=== PATIENT | male | born 1970 | race Caucasian/White ===

== ENCOUNTER 2019-07-23 10:33 | Day surgery (SDC) | payer BC ==
[2019-07-23] MEDS ORDERED: LIDOCAINE 1% 20 ML VIAL (10MG/ML) FOR IV START INTRADERMA PRN (11:08)
[2019-07-23 11:10] VITALS: TEMP 97.8
[2019-07-23] MEDS: LACTATED RINGERS 1,000 ML IV SCH ×2 (11:25→11:27)
[2019-07-23] MEDS ORDERED: LIDOCAINE 1% INJ 10MG/ML (20 ML MDV) ONE (11:30)
[2019-07-23] MEDS ORDERED: PROPOFOL 10 MG/ML 20 ML VIAL IV ONE (11:30)
--- NOTE | 2019-07-23 11:35 | P.GSHP ---
History of Present Illness H&P Date: 07/23/19 Chief Complaint: GERD, presurgical Patient here today for upper endoscopy. Patient with complaints of mild reflux. Patient has been worked up for upcoming sleeve gastrectomy. Past Medical History Past Medical History: Asthma, Cancer Additional Past Medical History / Comment(s): EXERCISE INDUCED ASTHMA-HAS RESCUE INHALERNECK, SKIN CANCER-MULTIPLE TIMES ON ARMS, FACE, BACK OF NECK. [facility] History of Any Multi-Drug Resistant Organisms: None Reported Past Surgical History: Cholecystectomy, Orthopedic Surgery Additional Past Surgical History / Comment(s): ARTHROSCOPY RT AND LEFT KNEES, SCOPE ON RT SHOULDER, SCALP SURGERY, STRESS TEST ON TREADMILL Past Anesthesia/Blood Transfusion Reactions: No Reported Reaction Past Psychological History: No Psychological Hx Reported Smoking Status: Never smoker Past Alcohol Use History: Occasional Past Drug Use History: None Reported Medications and Allergies Home Medications Medication Instructions Recorded Confirmed Type Fluticasone Nasal [place] [Flonase 1 spray INTRANASAL DAILY 07/23/19 07/23/19 History Nasal [place]] Allergies Allergy/AdvReac Type Severity Reaction Status Date / Time cefazolin [From Kefzol] Allergy Rash/Hives Verified 07/23/19 11:04 erythromycin base Allergy Vomiting Verified 07/23/19 11:05 Surgical - Exam Vital Signs Temp Pulse Resp BP Pulse Ox 97.8 F 71 18 163/104 95 07/23/19 11:08 07/23/19 11:08 07/23/19 11:08 07/23/19 11:08 07/23/19 11:08 Physical exam: General: Well-developed, well-nourished HEENT: Normocephalic, sclerae nonicteric Abdomen: Nontender, nondistended Extremities: No edema Neuro: Alert and oriented Assessment and Plan (1) GERD (gastroesophageal reflux disease) Narrative/Plan: Will proceed with upper endoscopy at this time. Current Visit: Yes Status: Acute Code(s): K21.9 - GASTRO-ESOPHAGEAL REFLUX DISEASE WITHOUT ESOPHAGITIS SNOMED Code(s): 791137052
--- NOTE | 2019-07-23 11:42 | P.PCN ---
Date of Procedure: 07/23/19 Procedure(s) Performed: Preoperative Dx: GERD, presurgical Postoperative Dx: Mild gastritis Procedure: EGD with Bx Anesthesia: Sedation Endoscopist: Dr. Cates Specimens: Antrum Endoscopic Procedure: The patient was on the endoscopy table in the left decubitus position. The Olympus gastroscope was inserted into the oropharynx and passed under direct visualization to the region of the third portion of the duodenum. From that point the scope was slowly withdrawn inspecting all surfaces carefully. There were no neoplastic inflammatory or polypoid lesions throughout the duodenum. The pylorus was widely patent. The stomach was carefully inspected. There was gastritis present. A biopsy of the antrum took place to rule out H. pylori. Retroflexion revealed a normal hiatus. The esophagus was then carefully examined. There were no neoplastic inflammatory or polypoid lesions throughout the visualized esophagus. The patient was then taken to the recovery room in stable condition per anesthesia guidelines. Recommendations: Continue preoperative workup for upcoming sleeve gastrectomy. Follow-up next few weeks.
[2019-07-23 11:50] VITALS: RESP 16
[2019-07-23 12:06] VITALS: BP 126/70; PULSE 71
== END 2019-07-23 12:35 | disposition home or self-care (01) ==
LOC: ORWHC2ENDO 10:33
PROVIDERS: ATTEND Surgery
DX: K29.50 Unspecified chronic gastritis without bleeding (principal); K21.9 Gastro-esophageal reflux disease without esophagitis; J45.909 Unspecified asthma, uncomplicated; E66.01 Morbid (severe) obesity due to excess calories; Z68.41 Body mass index [BMI] 40.0-44.9, adult; Z88.1 Allergy status to other antibiotic agents; Z98.890 Other specified postprocedural states; Z85.828 Personal history of other malignant neoplasm of skin; Z90.49 Acquired absence of other specified parts of digestive tract; Z79.899 Other long term (current) drug therapy
CPT/HCPCS: 88305; 43239; J2001; J2704

== ENCOUNTER → 2019-07-26 | Outpatient (CLI) | payer BC ==
[2019-07-26 13:44] VITALS: BMI 40.6
== END | disposition home or self-care (01) ==
LOC: BARWHC3 08:46
PROVIDERS: ATTEND Surgery
DX: E66.01 Morbid (severe) obesity due to excess calories (principal); Z68.41 Body mass index [BMI] 40.0-44.9, adult
CPT/HCPCS: 97804

== ENCOUNTER → 2019-09-07 | Outpatient (CLI) | payer BC ==
[2019-09-07 14:24] VITALS: BP 133/76; PULSE 76; TEMP 98.1; BMI 41.3
--- NOTE | 2019-09-07 16:47 | P.BASOAP ---
Subjective Progress Note Date: 09/07/19 Principal diagnosis: Morbid obesity Patient returns after recent EGD. Endoscopic findings showing mild gastritis. H. pylori negative. He is still interested in pursuing sleeve gastrectomy. Objective - Vital Signs Vital signs: Vital Signs Temp 98.1 F 09/07/19 14:20 Pulse 76 09/07/19 14:20 Resp BP 133/76 09/07/19 14:20 Pulse Ox Intake & Output 09/06/19 09/07/19 09/07/19 18:59 06:59 18:59 Weight 130.635 kg - Exam Abdomen: Soft, nontender, nondistended Assessment/Plan (1) Morbid obesity Narrative/Plan: 49-year-old male with morbid obesity. We'll proceed with sleeve gastrectomy. Surgical consent form and associated risks/comment locations reviewed in detail. Potential of utilizing the da Cristina robot platform also reviewed. For now we'll tentatively schedule for traditional laparoscopic approach however if availability of Xi robot at the time of scheduling will consider recontacting patient by phone to switch to da Cristina assistance. Tentatively plan mid-to-late October. Plan: Date: 09/07/19 Initial Weight: Initial BMI: Current Weight: 130.635 kg Current BMI: 41.3 Type of Surgery: Vertical Sleeve Gastrectomy Total Volume in Band: Previous Volume: Volume Removed: Volume Added: Band Size:
== END | disposition home or self-care (01) ==
LOC: BARWHC3 13:19
PROVIDERS: ATTEND Surgery
DX: E66.01 Morbid (severe) obesity due to excess calories (principal); Z68.41 Body mass index [BMI] 40.0-44.9, adult; K29.70 Gastritis, unspecified, without bleeding
CPT/HCPCS: 99211

== ENCOUNTER → 2019-10-04 | Outpatient (CLI) | payer BC ==
[2019-10-04 16:44] LABS: Basophils # (A) 0.1 k/uL (0-0.2); Basophils % (A) 1 %; Eosinophils # (A) 0.1 k/uL (0-0.7); Eosinophils % (A) 1 %; HCT 45.1 % (39.0-53.0); HGB 14.8 gm/dL (13.0-17.5); Lymphocytes # (A) 1.9 k/uL (1.0-4.8); Lymphocytes % (A) 20 %; MCH 29.6 pg (25.0-35.0); MCHC 32.9 g/dL (31.0-37.0); MCV 89.8 fL (80.0-100.0); Mean Platelet Volume 8.2; Monocytes # (A) 0.6 k/uL (0-1.0); Monocytes % (A) 7 %; Neutrophils # (A) 6.3 k/uL (1.3-7.7); Neutrophils % (A) 69 %; Platelet Count 228 k/uL (150-450); RBC 5.02 m/uL (4.30-5.90); RDW 12.3 % (11.5-15.5); WBC 9.1 k/uL (3.8-10.6)
[2019-10-04 16:50] LABS: ALT 25 U/L (4-49); AST 35 U/L (17-59); African American GFR (CKD) >90 (>60 ml/min/1.73 sqM); Albumin 4.5 g/dL (3.5-5.0); Alkaline Phosphatase 57 U/L (38-126); Anion Gap 10 mmol/L; Blood Urea Nitrogen 24 mg/dL (9-20); Calcium 9.4 mg/dL (8.4-10.2); Carbon Dioxide 26 mmol/L (22-30); Chloride 103 mmol/L (98-107); Glucose 89 mg/dL (74-99); Non-African American GFR(CKD) 78 (>60 ml/min/1.73 sqM); Potassium 4.1 mmol/L (3.5-5.1); Sodium 139 mmol/L (137-145); Total Bilirubin 0.8 mg/dL (0.2-1.3); Total Protein 7.6 g/dL (6.3-8.2)
== END | disposition home or self-care (01) ==
LOC: LABPAT 16:05
PROVIDERS: ATTEND Surgery
DX: Z01.812 Encounter for preprocedural laboratory examination (principal)
CPT/HCPCS: 80053; 85025

== ENCOUNTER 2019-11-15 07:30 | Inpatient (IN) | payer BC ==
[~2019-11-15 07:30] MED LIST: CLINDAMYCIN 900 MG in DEXTROSE 5% IN WATER 50 ML IVPB ONE; DEXAMETHASONE SOD PHOSPHATE 10 MG/ML 1 ML VIAL IV ONE; ENOXAPARIN 40 MG/0.4 ML SYRINGE SQ ONE; GENTAMICIN 480 MG in SODIUM CHLORIDE 0.9% 100 ML IVPB ONE; LIDOCAINE 1% (10MG/ML) FOR IV START INTRADERMA PRN; MIDAZOLAM 2 MG/2 ML VIAL IV PRN; fentaNYL (PF) 50 MCG/ML 2 ML AMP IVP PRN
[2019-11-15] MEDS ORDERED: ONDANSETRON 4 MG/2 ML VIAL IVP ONE (08:45)
[2019-11-15] MEDS ORDERED: LACTATED RINGERS 1,000 ML IV ONE (08:45)
--- NOTE | 2019-11-15 10:09 | P.GSHP ---
History of Present Illness H&P Date: 11/15/19 Chief Complaint: Morbid obesity 49-year-old male known to our service. Patient here today for elective sleeve gastrectomy. Patient initially started seeing us at [facility] for his weight loss surgery. His care is been transferred to this hospital. Patient suffers from asthma chronic back pain chronic joint pain osteoarthritis fatty liver and mild reflux. Denies history of DVT or dysphagia. BMI when evaluated outpatient was 43.5. Heaviest weight 316. had sleeve gastrectomy with good results. He is not interested in gastric bypass. Recent endoscopy showed mild gastritis. H. pylori negative. No tobacco use. Past Medical History Past Medical History: Asthma, Cancer, Pneumonia, Sleep Apnea/CPAP/BIPAP Additional Past Medical History / Comment(s): EXERCISE INDUCED ASTHMA, SKIN CANCER-MULTIPLE TIMES ON ARMS, FACE, BACK OF NECK. History of Any Multi-Drug Resistant Organisms: None Reported Past Surgical History: Cholecystectomy, Orthopedic Surgery Additional Past Surgical History / Comment(s): ARTHROSCOPY RT AND LEFT KNEES, arthroscopy rt shoudlder, removal of skin cancer from neck and shoulder Past Anesthesia/Blood Transfusion Reactions: No Reported Reaction Smoking Status: Never smoker - Past Family History Father Family Medical History: Cancer Mother Family Medical History: Deep Vein Thrombosis (DVT) Medications and Allergies Home Medications Medication Instructions Recorded Confirmed Type Fluticasone Nasal [place] [Flonase 1 spray NASAL DAILY 07/23/19 11/12/19 History Nasal [place]] Allergies Allergy/AdvReac Type Severity Reaction Status Date / Time cefazolin [From Kefzol] Allergy Rash/Hives Verified 11/12/19 08:19 erythromycin base Allergy Vomiting Verified 11/12/19 08:19 Surgical - Exam Vital Signs Temp Pulse Resp BP Pulse Ox 97.5 F L 69 18 131/91 96 11/15/19 08:31 11/15/19 08:31 11/15/19 08:31 11/15/19 08:31 11/15/19 08:31 Physical exam: General: Well-developed, well-nourished HEENT: Normocephalic, sclerae nonicteric Abdomen: Nontender, nondistended Extremities: No edema Neuro: Alert and oriented Assessment and Plan (1) Morbid obesity Narrative/Plan: 49-year-old male with morbid obesity. Underlying comorbidities as per HPI. Remains interested in sleeve gastrectomy. We'll proceed with laparoscopic sleeve gastrectomy, possible open today. The risks of bleeding, infection, stenosis, stricture, leak, abscess, fistula formation, peritonitis, poor weight loss, reflux, vomiting, conversion to an open procedure, aborting sleeve gastrectomy, MO, PE, DVT, and were discussed. The patient understands and wishes to proceed. Current Visit: No Status: Acute Code(s): E66.01 - MORBID (SEVERE) OBESITY DUE TO EXCESS CALORIES SNOMED Code(s): 922827437
[2019-11-15] MEDS ORDERED: LIDOCAINE 1% INJ 10MG/ML (20 ML MDV) ONE (11:28)
[2019-11-15] MEDS ORDERED: fentaNYL (PF) 50 MCG/ML 2 ML AMP ONE (11:28)
[2019-11-15] MEDS ORDERED: ROCURONIUM BROMIDE 10 MG/ML 5 ML VIAL IV ONE (11:28)
[2019-11-15] MEDS ORDERED: PROPOFOL 10 MG/ML 20 ML VIAL IV ONE (11:28)
[2019-11-15] MEDS ORDERED: MIDAZOLAM 2 MG/2 ML VIAL ONE (11:28)
[2019-11-15] MEDS ORDERED: SUCCINYLCHOLINE CHLORIDE VIAL 200 MG/10 ML VIAL IV ONE (11:28)
[2019-11-15] MEDS ORDERED: GLYCOPYRROLATE 0.2 MG/ML 2 ML VIAL ONE (11:28)
[2019-11-15] MEDS ORDERED: PHENYLEPHRINE-0.9% NACL SYG 1 MG/10 ML SYRINGE ONE (11:28)
[2019-11-15] MEDS ORDERED: NEOSTIGMINE 1 MG/ML 10 ML VIAL ONE (11:28)
[2019-11-15] MEDS: LACTATED RINGERS 1,000 ML IV SCH (12:15)
[2019-11-15] MEDS ORDERED: BUPIVACAINE (PF) 0.25% 30 ML VIAL SQ ONE ×2 (12:32)
[2019-11-15] MEDS ORDERED: NALOXONE 0.4 MG/ML 1 ML VIAL IV PRN (13:42)
[2019-11-15] MEDS ORDERED: diphenhydrAMINE 50 MG/ML 1 ML VIAL IVP PRN (13:42)
--- NOTE | 2019-11-15 13:42 | P.OP ---
Date of Procedure: 11/15/19 Procedure(s) Performed: PREOPERATIVE DIAGNOSIS: Morbid obesity, chronic back pain, arthritis, asthma, GERD POSTOPERATIVE DIAGNOSIS: Same PROCEDURE: Laparoscopic sleeve gastrectomy SURGEON: Darryn EBL: Minimal ANESTHESIA: General COMPLICATIONS: None OPERATIVE PROCEDURE: Patient was placed in the operating table in the supine position. She was placed under general anesthesia at that time. The abdomen was prepped and draped in sterile fashion after the patient was placed in lithotomy. A 5 mm optical trocar was used to enter the abdominal cavity in the left upper quadrant. Insufflation took place to 15 millimeters mercury. An additional right subxiphoid 5 mm trocar was then placed under direct visu alization and then removed. 2 additional 5 mm trochars were placed in the right upper quadrant and left upper quadrant under direct visualization and a 15 mm trocar in the supraumbilical location. The liver was retracted using a medium Shira liver retractor through the right subxiphoid trocar site. The hiatus was inspected. The patient had no visible hiatal hernia At that point I moved to the mid aspect of the greater curvature the stomach. The short gastric vasculature was divided using a LigaSure device proximally. I then switched and divided the short gastrics distally to a 3-4 cm from the pylorus. The dissection took place up to the left diaphragmatic crura at that point. The posterior short gastrics were likewise divided using the LigaSure device. Once the stomach was fully mobilized the blunt tipped 40-Hungarian bougie dilator was advanced into the stomach and advanced all the way to the prepyloric location. A black echelon 60 stapler was utilized and fired tangentially across the antrum taking care to avoid narrowing at the incisura angularis. The second firing of the stapler was also a black load. Following that a total of 3 green echelon 60 staplers with seam guard took place proximally staying on the outer edge of our dilator. The oral gastric tube was reinserted. The stomach was insufflated with approximately 100 mL of methylene blue. No evidence of leak or obstruction was seen. The distal aspect of the sleeve was then reapproximated to the gastrosplenic and gastrocolic ligament using a short running 2-0 strata fix suture. This was done to prevent kinking or twisting of the sleeve. Tisseel fibrin glue was used along the length of the staple line. The stomach remnant was removed from the 15 mm trocar site without difficulty. The fascia at the 15 more site was closed using interrupted 0 Vicryl sutures with the laparoscopic suture passer and Kj Axel technique. The insufflation was evacuated. The skin at all 5 incisions were closed using 4-0 Monocryl sutures. Skin glue was then applied. DISPOSITION: Stable to recovery room
[2019-11-15] MEDS: HYDROmorphone 0.5 MG/0.5 ML SYRINGE IVP PRN ×3 (14:21→14:50)
[2019-11-15] MEDS ORDERED: SODIUM CHLORIDE 0.9% 1,000 ML IV ONE (15:21)
[2019-11-15] MEDS ORDERED: ACETAMINOPHEN IV (For NPO) 1,000 MG in EMPTY BAG 1 BAG IVPB ONE (16:00)
[2019-11-15] MEDS: ALBUTEROL NEBULIZED 2.5 MG/3 ML INHALATION SCH ×2 (16:48→19:56)
[2019-11-15] MEDS: 0.9% NACL WITH KCL 20 MEQ/L 1,000 ML IV SCH (17:03)
[2019-11-15] MEDS: HYDROmorphone 1 MG/ML 1 ML SYRINGE IVP PRN (20:31)
[2019-11-16] MEDS: 0.9% NACL WITH KCL 20 MEQ/L 1,000 ML IV SCH ×2 (00:27→07:02)
[2019-11-16] MEDS: HYDROmorphone 1 MG/ML 1 ML SYRINGE IVP PRN (01:50)
[2019-11-16] MEDS: SIMETHICONE 40 MG/0.6 ML DROPS 2,000 MG/30 ML BOTTLE PO PRN ×2 (01:50→08:00)
[2019-11-16] MEDS: HYOSCYAMINE ORAL DROPS 1.875 MG/15 ML BOTTLE PO PRN ×2 (01:51→08:00)
[2019-11-16] MEDS: ONDANSETRON 4 MG/2 ML VIAL IVP PRN ×2 (01:52→11:16)
[2019-11-16] MEDS: LACTATED RINGERS 1,000 ML IV SCH (06:18)
[2019-11-16 07:52] LABS: African American GFR (CKD) >90 (>60 ml/min/1.73 sqM); Anion Gap 9 mmol/L; Blood Urea Nitrogen 19 mg/dL (9-20); Carbon Dioxide 24 mmol/L (22-30); Chloride 105 mmol/L (98-107); Magnesium 1.8 mg/dL (1.6-2.3); Non-African American GFR(CKD) >90 (>60 ml/min/1.73 sqM); Phosphorus 3.2 mg/dL (2.5-4.5); Potassium 4.2 mmol/L (3.5-5.1); Sodium 138 mmol/L (137-145)
[2019-11-16] MEDS: ENOXAPARIN 40 MG/0.4 ML SYRINGE SQ SCH ×2 (08:00→20:11)
[2019-11-16] MEDS: PANTOPRAZOLE 40 MG/10 ML VIAL IV SCH (08:00)
[2019-11-16 08:01] LABS: Basophils % (A) 0 %; Eosinophils # (A) 0.1 k/uL (0-0.7); Eosinophils % (A) 1 %; HCT 43.5 % (39.0-53.0); HGB 14.3 gm/dL (13.0-17.5); Lymphocytes # (A) 1.1 k/uL (1.0-4.8); Lymphocytes % (A) 9 %; MCH 29.4 pg (25.0-35.0); MCHC 32.9 g/dL (31.0-37.0); MCV 89.3 fL (80.0-100.0); Mean Platelet Volume 8.3; Monocytes # (A) 0.7 k/uL (0-1.0); Monocytes % (A) 5 %; Neutrophils # (A) 10.9 k/uL (1.3-7.7); Neutrophils % (A) 85 %; Platelet Count 217 k/uL (150-450); RBC 4.87 m/uL (4.30-5.90); RDW 12.4 % (11.5-15.5); WBC 12.9 k/uL (3.8-10.6)
[2019-11-16] MEDS: ALBUTEROL NEBULIZED 2.5 MG/3 ML INHALATION SCH ×4 (08:23→20:07)
[2019-11-16] MEDS ORDERED: HYDROcodone/APAP 15 ML SOLUTION PO PRN (09:49)
--- NOTE | 2019-11-16 09:54 | FL ---
EXAMINATION TYPE: FL UGI DATE OF EXAM: 11/16/2019 LIMITED UGI: CLINICAL HISTORY: Morbid Obesity, gastric sleeve surgery yesterday . TECHNIQUE: Limited esophagram is performed utilizing 15 oz of Isovue-370. A total of 14 seconds of f luoroscopic time was utilized during procedure. 34 spot images are saved. COMPARISON: Abdominal x-ray February 08, 2013.. FINDINGS: The patient swallowed contrast without difficulty or delay. Patient has mild pain before a nd after procedure. Esophageal peristalsis and motility are satisfactory. Occasional abnormal seconda ry and tertiary contraction. There is good flow of contrast along the diaphragmatic hiatus into proxi mal stomach and subsequent flow through proximal anastomosis into gastric sleeve. There is good flow from distal sleeve and anastomosis into pylorus and duodenal sweep. Patient shows no increased sympto ms. There is no evidence of contrast extravasation to suggest leak. Cholecystectomy clips incidentall y noted. IMPRESSION: No evidence of leak or significant obstruction status post recent gastric sleeve surgery yesterday.
[2019-11-16] MEDS: 1: MVI, ADULT NO.4 WITH VIT K 10 ML, THIAMINE 100 MG, FOLIC ACID 1 MG, POTASSIUM CHLORID IV SCH ×12 (11:17→20:12)
--- NOTE | 2019-11-16 11:22 | P.PN ---
<Shirley Valerio - Last Filed: 11/16/19 11:10> Subjective Progress Note Date: 11/16/19 CHIEF COMPLAINT: Morbid obesity HISTORY OF PRESENT ILLNESS: 49-year-old male who is status post laparoscopic sleeve gastrectomy with Dr. Cates. Postop day #1. Patient examined this morning at the bedside. Patient reports gasping morning but states otherwise his pain has been tolerable. Patient was encouraged to ambulate in the hallway. Patient denies nausea or vomiting. Esophagram completed this morning negative for leak or obstruction. Vital signs stable. He is afebrile. PHYSICAL EXAM: VITAL SIGNS: Reviewed. GENERAL: Well-developed in no acute distress. HEENT: No sclera icterus. Extraocular movements grossly intact. Moist buccal mucosa. Head is atraumatic, normocephalic. ABDOMEN: Soft. Nondistended. Nontender. Surgical sites clean dry and intact. NEUROLOGIC: Alert and oriented. Cranial nerves II through XII grossly intact. ASSESSMENT: 1. Morbid obesity, status post laparoscopic sleeve gastrectomy PLAN: -Begin bariatric clear liquid diet -Pain control. Add IV Toradol. Add [place] PRN -Incentive spirometry -Increase activity as tolerated. Patient encouraged to be ambulating in the hallways today Nurse practitioner note has been reviewed by physician. Signing provider agrees with the documented findings, assessment, and plan of care. Objective - Vital Signs Vital signs: Vital Signs Temp 98.3 F 11/16/19 08:00 Pulse 77 11/16/19 08:34 Resp 16 11/16/19 08:23 BP 155/82 11/16/19 08:00 Pulse Ox 95 11/16/19 08:23 Intake & Output 11/15/19 11/16/19 11/16/19 18:59 06:59 18:59 Intake Total 8 Output Total 20 800 Balance 2097 -800 Weight 124.4 kg 124.4 kg Intake: IV 2117 Output: Urine 800 Estimated Blood Loss 20 Other: Voiding Method Toilet - Labs CBC & Chem 7: 11/16/19 07:09 11/16/19 07:09 Labs: Abnormal Lab Results - Last 24 Hours (Table) 11/16/19 Range/Units 07:09 WBC 12.9 H (3.8-10.6) k/uL Neutrophils # 10.9 H (1.3-7.7) k/uL <Shayan Cates - Last Filed: 11/16/19 15:39> Subjective Patient doing better this afternoon. He was complaining of crampy abdominal pain last night. Upper GI shows no evidence of leak or significant obstruction. Says his pain is better controlled with Toradol. Continue ambulation. Continue liquid diet. Possible discharge tomorrow. Objective - Vital Signs Vital signs: Vital Signs Temp 98.7 F 11/16/19 15:00 Pulse 79 11/16/19 15:00 Resp 18 11/16/19 15:00 BP 134/81 11/16/19 15:00 Pulse Ox 94 L 11/16/19 15:00 Intake & Output 11/15/19 11/16/19 11/16/19 18:59 06:59 18:59 Intake Total 2118 Output Total 20 800 Balance 8 -800 Weight 124.4 kg 124.4 kg 124.4 kg Intake: IV 8 Output: Urine 800 Estimated Blood Loss 20 Other: Voiding Method Toilet # Voids 3 - Labs CBC & Chem 7: 11/16/19 07:09 11/16/19 07:09 Labs: Abnormal Lab Results - Last 24 Hours (Table) 11/16/19 Range/Units 07:09 WBC 12.9 H (3.8-10.6) k/uL Neutrophils # 10.9 H (1.3-7.7) k/uL Assessment and Plan (1) Morbid obesity Current Visit: No Status: Acute Code(s): E66.01 - MORBID (SEVERE) OBESITY DUE TO EXCESS CALORIES SNOMED Code(s): 518763843
[2019-11-16 11:43] VITALS: BMI 39.3
[2019-11-16] MEDS: KETOROLAC 30 MG/ML 1 ML VIAL IVP SCH ×3 (12:11→22:20)
--- NOTE | 2019-11-16 15:13 | P.CONS ---
History of Present Illness - Reason for Consult Consult date: 11/16/19 medical management - History of Present Illness This is a 49-year-old male patient of Dr. Torres with past medical history of mild intermittent asthma, skin cancer, obstructive sleep apnea with CPAP, morbid obesity with BMI of 39. Patient has been brought in the hospital under the care of Dr. Cates status post laparoscopic sleeve gastrectomy. Patient is postop day #1. He has had no postop complications. Patient is denying any chest pain or shortness of breath. He is complaining of feeling gas bubble-type pain since yesterday after surgery with constant pressure. He is urinating okay. He has not had any diarrhea. He denies any flatulence. He is burping but not much improvement. He denies any dizziness or lightheadedness. He did have nausea after Dilaudid and is avoiding that now. He used his last night CPAP which is at his bedside. Review of Systems Constitutional: Denies anorexia, Denies chills, Denies fatigue, Denies fever, Denies lethargy, Denies malaise, Denies weakness Eyes: denies blurred vision, denies pain Ears, nose, mouth and throat: Denies dental pain, Denies headache, Denies nasal congestion, Denies nasal discharge, Denies sore throat, Denies vertigo Cardiovascular: Denies chest pain, Denies decreased exercise tolerance, Denies dyspnea on exertion, Denies edema, Denies leg edema, Denies lightheadedness, Denies shortness of breath, Denies syncope Respiratory: Reports sleep apnea, Denies cough, Denies cough with sputum, Denies dyspnea, Denies excessive sputum, Denies hemoptysis, Denies home oxygen, Denies respiratory infections, Denies wheezing Gastrointestinal: Reports abdominal pain, Reports loss of appetite, Denies diarrhea, Denies nausea, Denies vomiting Genitourinary: Denies dysuria, Denies urinary retention Musculoskeletal: Denies frequent falls, Denies gait dysfunction, Denies muscle weakness, Denies myalgias Integumentary: Denies pruritus, Denies rash Neurological: Reports change in mentation, Reports change in speech, Denies numbness, Denies weakness Psychiatric: Denies anxiety, Denies depression Endocrine: Denies fatigue, Denies weight change Past Medical History Past Medical History: Asthma, Cancer, Pneumonia, Sleep Apnea/CPAP/BIPAP Additional Past Medical History / Comment(s): EXERCISE INDUCED ASTHMA, SKIN CANCER-MULTIPLE TIMES ON ARMS, FACE, BACK OF NECK. History of Any Multi-Drug Resistant Organisms: None Reported Past Surgical History: Cholecystectomy, Orthopedic Surgery Additional Past Surgical History / Comment(s): ARTHROSCOPY RT AND LEFT KNEES, arthroscopy rt shoudlder, removal of skin cancer from neck and shoulder Past Anesthesia/Blood Transfusion Reactions: No Reported Reaction Past Psychological History: No Psychological Hx Reported Smoking Status: Never smoker Past Alcohol Use History: Rare Additional Past Alcohol Use History / Comment(s): Patient is a lifelong nonsmoker, no illicit drug use, occasional alcohol use. Past Drug Use History: None Reported - Past Family History Father Family Medical History: Cancer Additional Family Medical History / Comment(s): Father is alive at age 71 with history of skin cancer and mitral regurgitation secondary to rheumatic fever. Mother Family Medical History: Deep Vein Thrombosis (DVT) Additional Family Medical History / Comment(s): Mother is alive at age 71 with history of exocrine pancreatic insufficiency. Brother(s) Additional Family Medical History / Comment(s): Patient has 1 brother with no major medical problems. Patient does not have any sisters. Patient has 2 daughters with no major medical problems. Medications and Allergies Home Medications Medication Instructions Recorded Confirmed Type Fluticasone Nasal [place] [Flonase 1 spray NASAL DAILY 07/23/19 11/12/19 History Nasal [place]] Allergies Allergy/AdvReac Type Severity Reaction Status Date / Time cefazolin [From Kefzol] Allergy Rash/Hives Verified 11/12/19 08:19 erythromycin base Allergy Vomiting Verified 11/12/19 08:19 Physical Exam Vitals: Vital Signs Temp Pulse Pulse Pulse Pulse Resp BP 11/16/19 08:00 98.3 F 84 17 155/82 11/16/19 03:58 11/16/19 03:34 18 11/16/19 02:14 98.0 F 97 18 167/82 11/16/19 00:27 18 11/15/19 20:20 18 11/15/19 19:28 97.5 F L 115 H 18 110/65 11/15/19 17:36 106 H 130/74 11/15/19 17:20 106 H 150/75 11/15/19 17:05 104 H 144/80 11/15/19 16:58 93 11/15/19 16:52 91 18 11/15/19 16:51 94 130/71 11/15/19 16:35 97 145/81 11/15/19 16:20 93 149/80 11/15/19 16:05 96 144/79 11/15/19 16:00 69 18 11/15/19 15:50 89 145/80 11/15/19 15:35 97.6 F 80 146/80 11/15/19 15:16 81 16 125/61 11/15/19 15:00 78 16 129/60 11/15/19 14:46 76 16 146/75 11/15/19 14:30 76 16 145/74 11/15/19 14:16 83 16 128/60 11/15/19 14:01 79 16 121/57 11/15/19 13:46 89 16 131/59 11/15/19 13:30 83 16 129/60 11/15/19 13:27 97.5 F L 87 16 125/57 11/15/19 08:31 97.5 F L 69 18 131/91 Pulse Ox 11/16/19 08:00 91 L 11/16/19 03:58 96 11/16/19 03:34 11/16/19 02:14 95 11/16/19 00:27 11/15/19 20:20 11/15/19 19:28 90 L 11/15/19 17:36 11/15/19 17:20 93 L 11/15/19 17:05 94 L 11/15/19 16:58 11/15/19 16:52 11/15/19 16:51 98 11/15/19 16:35 90 L 11/15/19 16:20 91 L 11/15/19 16:05 90 L 11/15/19 16:00 11/15/19 15:50 91 L 11/15/19 15:35 92 L 11/15/19 15:16 98 11/15/19 15:00 98 11/15/19 14:46 98 11/15/19 14:30 98 11/15/19 14:16 98 11/15/19 14:01 98 11/15/19 13:46 97 11/15/19 13:30 97 11/15/19 13:27 95 11/15/19 08:31 96 Intake and Output 11/15/19 11/16/19 11/16/19 22:59 06:59 14:59 Output Total 800 Balance -800 Output: Urine 800 Other: Voiding Method Toilet Toilet Weight 124.4 kg Gen: This is a 49-year-old male. Patient is sitting up in bed and appears to be comfortable. He is complaining of abdominal discomfort. HEENT: Head is atraumatic, normocephalic. Pupils equal, round. Sclerae is anicteric. NECK: Supple. No JVD. No lymphadenopathy. No thyromegaly. LUNGS: Clear to auscultation. No wheezes or rhonchi. No intercostal retractions. HEART: Regular rate and rhythm. No murmur. ABDOMEN: Soft. Bowel sounds are present. No masses. Mild generalized tenderness. EXTREMITIES: No pedal edema. No calf tenderness. Dorsalis pedis palpable bilaterally. NEUROLOGICAL: Patient is awake, alert and oriented x3. Cranial nerves 2 through 12 are grossly intact. Results CBC & Chem 7: 11/16/19 07:09 11/16/19 07:09 Labs: Abnormal Lab Results - Last 24 Hours (Table) 11/16/19 Range/Units 07:09 WBC 12.9 H (3.8-10.6) k/uL Neutrophils # 10.9 H (1.3-7.7) k/uL Assessment and Plan Plan: 1. Morbid obesity status post lap scopic sleeve gastrectomy, postop day #1. Patient has had no postop comp occasions. IV Toradol and [place] added for pain control. Continue incentive spirometry to reduce incidence of atelectasis and hospital acquired pneumonia. Continue ambulation. 2. Mild intermittent asthma, stable without exacerbation. 3. Obstructive sleep apnea. Patient is utilizing CPAP at night. 4. History of skin cancer. 5. GI prophylaxis. Protonix. 6. DVT prophylaxis. Lovenox 40 mg subcu every 12 hours. Discharge plan: home Impression and plan of care have been directed as dictated by the signing physician. Chloé Dee nurse practitioner acting as scribe for signing physician.
[2019-11-17] MEDS: KETOROLAC 30 MG/ML 1 ML VIAL IVP SCH ×3 (05:24→17:46)
[2019-11-17] MEDS: HYOSCYAMINE ORAL DROPS 1.875 MG/15 ML BOTTLE PO PRN ×2 (05:26→17:49)
[2019-11-17] MEDS: SIMETHICONE 40 MG/0.6 ML DROPS 2,000 MG/30 ML BOTTLE PO PRN ×2 (05:26→17:48)
[2019-11-17] MEDS: LACTATED RINGERS 1,000 ML IV SCH (05:31)
[2019-11-17] MEDS: 1: MVI, ADULT NO.4 WITH VIT K 10 ML, THIAMINE 100 MG, FOLIC ACID 1 MG, POTASSIUM CHLORID IV SCH ×18 (05:31→21:33)
[2019-11-17] MEDS: ALBUTEROL NEBULIZED 2.5 MG/3 ML INHALATION SCH ×4 (07:25→21:20)
[2019-11-17 07:27] LABS: Basophils % (A) 0 %; Eosinophils # (A) 0.1 k/uL (0-0.7); Eosinophils % (A) 1 %; HCT 40.1 % (39.0-53.0); HGB 13.2 gm/dL (13.0-17.5); Lymphocytes # (A) 0.9 k/uL (1.0-4.8); Lymphocytes % (A) 10 %; MCH 29.8 pg (25.0-35.0); MCV 90.4 fL (80.0-100.0); Mean Platelet Volume 8.6; Monocytes # (A) 0.6 k/uL (0-1.0); Monocytes % (A) 6 %; Neutrophils # (A) 7.1 k/uL (1.3-7.7); Neutrophils % (A) 82 %; Platelet Count 181 k/uL (150-450); RBC 4.44 m/uL (4.30-5.90); RDW 12.4 % (11.5-15.5); WBC 8.7 k/uL (3.8-10.6)
[2019-11-17] MEDS: ENOXAPARIN 40 MG/0.4 ML SYRINGE SQ SCH ×2 (07:43→21:33)
[2019-11-17] MEDS: PANTOPRAZOLE 40 MG/10 ML VIAL IV SCH (07:43)
[2019-11-17 07:45] LABS: African American GFR (CKD) >90 (>60 ml/min/1.73 sqM); Anion Gap 7 mmol/L; Blood Urea Nitrogen 18 mg/dL (9-20); Calcium 8.7 mg/dL (8.4-10.2); Carbon Dioxide 24 mmol/L (22-30); Chloride 108 mmol/L (98-107); Glucose 105 mg/dL (74-99); Non-African American GFR(CKD) >90 (>60 ml/min/1.73 sqM); Potassium 4.4 mmol/L (3.5-5.1); Sodium 139 mmol/L (137-145)
--- NOTE | 2019-11-17 09:19 | P.PN ---
<ImanGenoShirley A - Last Filed: 11/17/19 09:15> Subjective Progress Note Date: 11/17/19 CHIEF COMPLAINT: Morbid obesity HISTORY OF PRESENT ILLNESS: 49-year-old male who is status post laparoscopic sleeve gastrectomy with Dr. Cates. Postop day #2. Patient examined this morning at the bedside. Patient is tolerating clear liquid diet. He ate some lemon ice and water this morning. He does report mild dysphagia with the jello. Denies nausea or vomiting. Pain 6/10 this morning. He is receiving IV Toradol only. He has been offered additional pain medications but has refused. Vital signs stable. He is afebrile. WBC 8.7. Hemoglobin 13.2. PHYSICAL EXAM: VITAL SIGNS: Reviewed. GENERAL: Well-developed in no acute distress. HEENT: No sclera icterus. Extraocular movements grossly intact. Moist buccal mucosa. Head is atraumatic, normocephalic. ABDOMEN: Soft. Nondistended. Appropriate surgical tenderness. Surgical sites clean dry and intact. NEUROLOGIC: Alert and oriented. Cranial nerves II through XII grossly intact. ASSESSMENT: 1. Morbid obesity, status post laparoscopic sleeve gastrectomy PLAN: -Continue bariatric clear liquid diet -Pain control. Continue IV Toradol. Patient has [place] and Dilaudid ordered if he changes his mind regarding pain medications -Incentive spirometry -Increase activity as tolerated. Patient encouraged to continue ambulating in the halls today -Possible discharge this afternoon pending oral intake and pain. Otherwise, likely DC home tomorrow Nurse practitioner note has been reviewed by physician. Signing provider agrees with the documented findings, assessment, and plan of care. Objective - Vital Signs Vital signs: Vital Signs Temp 97.6 F 11/17/19 07:00 Pulse 90 11/17/19 07:00 Resp 17 11/17/19 07:00 BP 123/72 11/17/19 07:00 Pulse Ox 93 L 11/17/19 07:00 Intake & Output 11/16/19 11/17/19 11/17/19 18:59 06:59 18:59 Intake Total 1325 Balance 1325 Weight 124.4 kg Intake: Intake, IV Titration 1325 Amount 0.9% NaCl with KCl 20 Meq 800 /l 1,000 ml @ 100 mls/hr IV .BY DURATION MOISÉS Rx#: [id number] 0.9% NaCl with KCl 20 Meq 525 /l 1,000 ml @ 150 mls/hr IV .Q6H40M MOISÉS Rx#: [id number] Other: Voiding Method Toilet # Voids 3 2 - Labs CBC & Chem 7: 11/17/19 06:50 11/17/19 06:50 Labs: Abnormal Lab Results - Last 24 Hours (Table) 11/17/19 11/17/19 Range/Units 06:50 06:50 Lymphocytes # 0.9 L (1.0-4.8) k/uL Chloride 108 H (98-107) mmol/L Glucose 105 H (74-99) mg/dL <Shayan Cates - Last Filed: 11/17/19 10:22> Subjective As above. Patient still having upper abdominal discomfort. Says it's improving slowly. Tolerating his liquid diet. Mild dysphagia. White blood cell count normal. Patient afebrile. Monitor symptoms throughout the day. Possible discharge later today or tomorrow. Objective - Vital Signs Vital signs: Vital Signs Temp 97.6 F 11/17/19 07:00 Pulse 90 11/17/19 07:00 Resp 17 11/17/19 07:00 BP 123/72 11/17/19 07:00 Pulse Ox 93 L 11/17/19 07:00 Intake & Output 11/16/19 11/17/19 11/17/19 18:59 06:59 18:59 Intake Total 1325 Balance 1325 Weight 124.4 kg Intake: Intake, IV Titration 1325 Amount 0.9% NaCl with KCl 20 Meq 800 /l 1,000 ml @ 100 mls/hr IV .BY DURATION MOISÉS Rx#: [id number] 0.9% NaCl with KCl 20 Meq 525 /l 1,000 ml @ 150 mls/hr IV .Q6H40M MOISÉS Rx#: [id number] Other: Voiding Method Toilet # Voids 3 2 - Labs CBC & Chem 7: 11/17/19 06:50 11/17/19 06:50 Labs: Abnormal Lab Results - Last 24 Hours (Table) 11/17/19 11/17/19 Range/Units 06:50 06:50 Lymphocytes # 0.9 L (1.0-4.8) k/uL Chloride 108 H (98-107) mmol/L Glucose 105 H (74-99) mg/dL Assessment and Plan (1) Morbid obesity Current Visit: No Status: Acute Code(s): E66.01 - MORBID (SEVERE) OBESITY DUE TO EXCESS CALORIES SNOMED Code(s): 716602170
--- NOTE | 2019-11-17 14:37 | P.PN ---
Subjective Progress Note Date: 11/17/19 This is a 49-year-old male patient of Dr. Torres with past medical history of mild intermittent asthma, skin cancer, obstructive sleep apnea with CPAP, morbid obesity with BMI of 39. Patient has been brought in the hospital under the care of Dr. Cates status post laparoscopic sleeve gastrectomy. Patient is postop day #1. He has had no postop complications. Patient is denying any chest pain or shortness of breath. He is complaining of feeling gas bubble-type pain since yesterday after surgery with constant pressure. He is urinating okay. He has not had any diarrhea. He denies any flatulence. He is burping but not much improvement. He denies any dizziness or lightheadedness. He did have nausea after Dilaudid and is avoiding that now. He used his last night CPAP which is at his bedside. 11/16: Patient is seen today in follow-up. Continues to have generalized abdominal pain for which she is on IV Toradol.. He is currently tolerating diet bariatric clear liquid diet. Patient has been afebrile, heart rate 90, blood pressure 123/72, pulse ox 93% on room air. CBC is unremarkable, BMP unremarkable except for chloride of 108 and glucose 105. Upper GI showed no evidence of leak or significant obstruction status post recent gastric sleeve surgery. Pathology report reveals chronic gastritis. H. pylori not identified. Patient is utilizing incentive spirometry reaching 2000 ML's. Patient is to increase activity. Objective - Vital Signs Vital signs: Vital Signs Temp 97.6 F 11/17/19 07:00 Pulse 90 11/17/19 07:00 Resp 17 11/17/19 07:00 BP 123/72 11/17/19 07:00 Pulse Ox 93 L 11/17/19 07:00 Intake & Output 11/16/19 11/17/19 11/17/19 18:59 06:59 18:59 Intake Total 1325 Balance 1325 Weight 124.4 kg Intake: Intake, IV Titration 1325 Amount 0.9% NaCl with KCl 20 Meq 800 /l 1,000 ml @ 100 mls/hr IV .BY DURATION MOISÉS Rx#: [id number] 0.9% NaCl with KCl 20 Meq 525 /l 1,000 ml @ 150 mls/hr IV .Q6H40M MOISÉS Rx#: [id number] Other: Voiding Method Toilet # Voids 3 2 - Exam Review of Systems Constitutional: Denies anorexia, Denies chills, Denies fatigue, Denies fever, Denies lethargy, Denies malaise, Denies weakness Eyes: denies blurred vision, denies pain Ears, nose, mouth and throat: Denies dental pain, Denies headache, Denies nasal congestion, Denies nasal discharge, Denies sore throat, Denies vertigo Cardiovascular: Denies chest pain, Denies decreased exercise tolerance, Denies dyspnea on exertion, Denies edema, Denies leg edema, Denies lightheadedness, Denies shortness of breath, Denies syncope Respiratory: Reports sleep apnea, Denies cough, Denies cough with sputum, Denies dyspnea, Denies excessive sputum, Denies hemoptysis, Denies home oxygen, Denies respiratory infections, Denies wheezing Gastrointestinal: Reports abdominal pain, Reports loss of appetite, Denies diarrhea, Denies nausea, Denies vomiting Genitourinary: Denies dysuria, Denies urinary retention Musculoskeletal: Denies frequent falls, Denies gait dysfunction, Denies muscle weakness, Denies myalgias Integumentary: Denies pruritus, Denies rash Neurological: Reports change in mentation, Reports change in speech, Denies numbness, Denies weakness Psychiatric: Denies anxiety, Denies depression Endocrine: Denies fatigue, Denies weight change Physical examination Gen: This is a 49-year-old male. Patient is sitting up in bed and appears to be comfortable. HEENT: Head is atraumatic, normocephalic. Pupils equal, round. Sclerae is anicteric. NECK: Supple. No JVD. No lymphadenopathy. No thyromegaly. LUNGS: Clear to auscultation. No wheezes or rhonchi. No intercostal retractions. HEART: Regular rate and rhythm. No murmur. ABDOMEN: Soft. Bowel sounds are present. No masses. Mild generalized tenderness. EXTREMITIES: No pedal edema. No calf tenderness. Dorsalis pedis palpable bilaterally. NEUROLOGICAL: Patient is awake, alert and oriented x3. Cranial nerves 2 through 12 are grossly intact. - Labs CBC & Chem 7: 11/17/19 06:50 11/17/19 06:50 Labs: Abnormal Lab Results - Last 24 Hours (Table) 11/17/19 11/17/19 Range/Units 06:50 06:50 Lymphocytes # 0.9 L (1.0-4.8) k/uL Chloride 108 H (98-107) mmol/L Glucose 105 H (74-99) mg/dL Assessment and Plan Plan: 1. Morbid obesity status post lap scopic sleeve gastrectomy, postop day #3. Patient has had no postop comp occasions. IV Toradol and [place] added for pain control. Continue incentive spirometry to reduce incidence of atelectasis and hospital acquired pneumonia. Continue ambulation. 2. Mild intermittent asthma, stable without exacerbation. 3. Obstructive sleep apnea. Patient is utilizing CPAP at night. 4. History of skin cancer. 5. GI prophylaxis. Protonix. 6. DVT prophylaxis. Lovenox 40 mg subcu every 12 hours. Discharge plan: home in the next 24 hours Impression and plan of care have been directed as dictated by the signing physician. Chloé Dee nurse practitioner acting as scribe for signing physician.
[2019-11-17] MEDS ORDERED: ACETAMINOPHEN ORAL SUSP 160 MG/5 ML CUP PO PRN ×2 (15:30→15:34)
[2019-11-18] MEDS: KETOROLAC 30 MG/ML 1 ML VIAL IVP SCH ×2 (00:03→06:22)
[2019-11-18] MEDS: LACTATED RINGERS 1,000 ML IV SCH (05:38)
[2019-11-18] MEDS: HYOSCYAMINE ORAL DROPS 1.875 MG/15 ML BOTTLE PO PRN (06:23)
[2019-11-18] MEDS: SIMETHICONE 40 MG/0.6 ML DROPS 2,000 MG/30 ML BOTTLE PO PRN (06:23)
[2019-11-18 07:58] VITALS: BP 129/78; PULSE 68; RESP 16; TEMP 99
[2019-11-18] MEDS: ALBUTEROL NEBULIZED 2.5 MG/3 ML INHALATION SCH ×3 (08:16→11:22)
[2019-11-18] MEDS: PANTOPRAZOLE 40 MG/10 ML VIAL IV SCH (08:24)
[2019-11-18] MEDS: 1: MVI, ADULT NO.4 WITH VIT K 10 ML, THIAMINE 100 MG, FOLIC ACID 1 MG, POTASSIUM CHLORID IV SCH ×6 (08:24)
[2019-11-18] MEDS: ENOXAPARIN 40 MG/0.4 ML SYRINGE SQ SCH (08:24)
[2019-11-18] MEDS ORDERED: ACETAMINOPHEN ORAL SUSP (PEDS) 3,840 MG/120 ML BOTTLE PO PRN (08:29)
--- NOTE | 2019-11-18 09:54 | P.DS ---
<Shirley Valerio - Last Filed: 11/18/19 09:53> Providers Expected date of discharge: 11/18/19 Hospital Course: 49-year-old male who is status post laparoscopic sleeve gastrectomy with Dr. Cates. Patient is doing well postoperatively without any immediate complications. He is tolerating liquid diet without nausea or vomiting. Pain is controlled on oral medications. Vital signs are stable. He is stable for discharge home today. Please see EMR for further hospital course details. Discharge Diagnosis: 1. Morbid obesity, status post laparoscopic sleeve gastrectomy Nurse practitioner note has been reviewed by physician. Signing provider agrees with the documented findings, assessment, and plan of care. Plan - Discharge Summary Discharge Rx Participant: No New Discharge Prescriptions: New Bisacodyl [Dulcolax] 5 mg PO DAILY PRN #10 tablet. PRN Reason: Constipation Simethicone 40 mg/0.6 ml Drops [Mylicon Drops] 40 mg PO PCHS PRN #30 ml PRN Reason: Gas Omeprazole [PriLOSEC] 40 mg PO DAILY #30 capsule. Ondansetron Odt [Zofran Odt] 4 mg PO Q8HR PRN #9 tab PRN Reason: Nausea Hydrocodone/Acetaminophen [[place] 5-325] 1 tab PO Q6HR PRN #10 tab PRN Reason: Pain No Action Fluticasone Nasal [place] [Flonase Nasal [place]] 1 spray NASAL DAILY Discharge Medication List Fluticasone Nasal [place] [Flonase Nasal [place]] 1 spray NASAL DAILY 07/23/19 [History] Bisacodyl [Dulcolax] 5 mg PO DAILY PRN #10 tablet. 11/17/19 [Rx] Hydrocodone/Acetaminophen [[place] 5-325] 1 tab PO Q6HR PRN #10 tab 11/17/19 [Rx] Omeprazole [PriLOSEC] 40 mg PO DAILY #30 capsule. 11/17/19 [Rx] Ondansetron Odt [Zofran Odt] 4 mg PO Q8HR PRN #9 tab 11/17/19 [Rx] Simethicone 40 mg/0.6 ml Drops [Mylicon Drops] 40 mg PO PCHS PRN #30 ml 11/17/19 [Rx] Follow up Appointment(s)/Referral(s): Pedro Torres MD [Primary Care Provider] - 1 Week (Please call office for your follow-up. Thank you.) [place], [place] [NON-STAFF] - 11/23/19 2:30 pm Patient Instructions/Handouts: Nutrition after Bariatric Surgery (DC), Laparoscopic Sleeve Gastrectomy (DC) Activity/Diet/Wound Care/Special Instructions: No lifting over 10 pounds You may shower. No soaking or tub baths Very light activity until you are reevaluated at your follow up appointment with your surgeon Discharge Disposition: HOME SELF-CARE <Shayan Cates - Last Filed: 11/18/19 17:20> Providers Date of admission: 11/15/19 08:07 Attending physician: Shayan Cates Consults: 11/15/19 13:42 Consult Physician Routine Consulting Provider: Pedro Torres Consult Reason/Comments: Medical management Do you want consulting provider notified?: Yes Primary care physician: Pedro Torres - Discharge Diagnosis(es) (1) Morbid obesity Status: Acute
== END 2019-11-18 15:48 | disposition home or self-care (01) | DRG 621 ==
LOC: 2ORMAIN 08:07 → 4SSUR 15:19
PROVIDERS: ADMIT Surgery; ATTEND Surgery
PROC: 0DB64Z3 Excision of Stomach, Percutaneous Endoscopic Approach, Vertical (ICD-10-PCS; principal; 2019-11-15 12:00)
DX: E66.01 Morbid (severe) obesity due to excess calories (principal); G89.29 Other chronic pain; M19.90 Unspecified osteoarthritis, unspecified site; G47.33 Obstructive sleep apnea (adult) (pediatric); K21.9 Gastro-esophageal reflux disease without esophagitis; K29.50 Unspecified chronic gastritis without bleeding; J45.20 Mild intermittent asthma, uncomplicated; Z68.42 Body mass index [BMI] 45.0-49.9, adult; Z99.89 Dependence on other enabling machines and devices; Z87.01 Personal history of pneumonia (recurrent); Z90.49 Acquired absence of other specified parts of digestive tract; Z98.890 Other specified postprocedural states; Z80.9 Family history of malignant neoplasm, unspecified; Z82.49 Family history of ischemic heart disease and other diseases of the circulatory system; Z88.1 Allergy status to other antibiotic agents; Z85.828 Personal history of other malignant neoplasm of skin; Z82.69 Family history of other diseases of the musculoskeletal system and connective tissue; Z80.8 Family history of malignant neoplasm of other organs or systems; Z80.0 Family history of malignant neoplasm of digestive organs
CPT/HCPCS: 74240; 80048; 80051; 82310; 82565; 83735; 84100; 84520; 85025; 88307; 94640; 94760; 94762

== ENCOUNTER → 2019-11-23 | Outpatient (CLI) | payer BC ==
[2019-11-23 12:35] VITALS: BP 118/87; PULSE 99; RESP 16; TEMP 98.3; BMI 36.6
--- NOTE | 2019-11-23 13:32 | P.BASOAP ---
Subjective Progress Note Date: 11/23/19 Principal diagnosis: Morbid obesity Patient returns for 1 week recheck. Doing fairly well. Pain is 0 out of 10 currently. He is tolerating liquids greater than 60 ounces per day. Still struggling somewhat with protein intake. Denies heartburn. No vomiting. No fevers. Heart rate normal. Weight today 255. Objective - Vital Signs Vital signs: Vital Signs Temp 98.3 F 11/23/19 12:32 Pulse 99 11/23/19 12:32 Resp 16 11/23/19 12:32 BP 118/87 11/23/19 12:32 Pulse Ox Intake & Output 11/22/19 11/23/19 11/23/19 18:59 06:59 18:59 Weight 115.666 kg - Exam Abdomen: Soft, nondistended, incisions clean and dry, minimal tenderness Assessment/Plan (1) Morbid obesity Narrative/Plan: Patient doing well at this time. Continue gradually advancing diet. Continue antiacid therapy. Return for reevaluation 3 weeks. May return to work 2 weeks from yesterday. Plan: Date: 11/23/19 Initial Weight: 115.666 kg Initial BMI: 36.6 Current Weight: 115.666 kg Current BMI: 36.6 Type of Surgery: Vertical Sleeve Gastrectomy Total Volume in Band: Previous Volume: Volume Removed: Volume Added: Band Size:
== END | disposition home or self-care (01) ==
LOC: BARWHC3 12:20
PROVIDERS: ATTEND Surgery
DX: E66.01 Morbid (severe) obesity due to excess calories (principal); Z68.36 Body mass index [BMI] 36.0-36.9, adult
CPT/HCPCS: 97803; 99211

== ENCOUNTER → 2019-12-22 | Outpatient (CLI) | payer BC ==
[2019-12-22 09:50] LABS: HCT 42.8 % (39.0-53.0); HGB 13.9 gm/dL (13.0-17.5); MCH 29.4 pg (25.0-35.0); MCHC 32.5 g/dL (31.0-37.0); MCV 90.2 fL (80.0-100.0); Mean Platelet Volume 8.6; Platelet Count 191 k/uL (150-450); RBC 4.74 m/uL (4.30-5.90); RDW 12.5 % (11.5-15.5); WBC 7.3 k/uL (3.8-10.6)
[2019-12-22 15:58] LABS: ALT 21 U/L (10-49); AST 24 U/L (14-35); African American GFR (CKD) 101.3 (60.0-200.0); Albumin/Globulin Ratio 1.95 (1.60-3.17); Alkaline Phosphatase 75 U/L (41-126); Calcium 9.6 mg/dL (8.7-10.3); Carbon Dioxide 29.1 mmol/L (21.6-31.8); Chloride 105 mmol/L (96-109); Globulin 2.2 g/dL (1.6-3.3); Glucose 87 mg/dL (70-110); Iron 85 ug/dL (65-175); Non-African American GFR(CKD) 87.4 (60.0-200.0); Potassium 4.5 mmol/L (3.5-5.5); Sodium 144 mmol/L (135-145); Total Bilirubin 0.9 mg/dL (0.2-1.2); Total Protein 6.5 g/dL (6.2-8.2)
[2019-12-22 16:22] LABS: Folate, Serum >24.0 ng/mL
== END | disposition home or self-care (01) ==
LOC: LABWHC1 09:05
PROVIDERS: ATTEND Surgery
DX: E66.01 Morbid (severe) obesity due to excess calories (principal); K90.89 Other intestinal malabsorption; E55.9 Vitamin D deficiency, unspecified
CPT/HCPCS: 36415; 80053; 82306; 82607; 82746; 83540; 84425; 85027

== ENCOUNTER → 2020-03-14 | Outpatient (CLI) | payer OTHER ==
--- NOTE | 2020-03-14 17:00 | P.BASOAP ---
Subjective Progress Note Date: 03/14/20 Principal diagnosis: Morbid obesity Patient doing well. Has only had one postoperative visit because of the recent pandemic. Has had excellent weight loss. Heaviest weight ever was 3:15 currently 206. No vomiting. Mild nausea when eating too much volume. Denies reflux. Still on Nexium. We'll check three-month labs. Objective - Exam Abdomen: Soft, nontender, nondistended Assessment/Plan (1) Morbid obesity Narrative/Plan: Patient doing overall quite well. Continue dietary and exercise regimen. Check 3 month labs. Follow-up 1-2 months. Plan: Date: Initial Weight: 115.666 kg Initial BMI: Current Weight: Current BMI: Type of Surgery: Total Volume in Band: Previous Volume: Volume Removed: Volume Added: Band Size:
[2020-03-15 09:28] VITALS: BMI 29.5
[2020-03-15 15:59] VITALS: BP 110/73; PULSE 75; TEMP 98
== END | disposition home or self-care (01) ==
LOC: BARWHC3 14:46
PROVIDERS: ATTEND Surgery
DX: E66.01 Morbid (severe) obesity due to excess calories (principal)
CPT/HCPCS: 97803; 99211

== ENCOUNTER → 2022-03-26 | Outpatient (CLI) | payer BC ==
[2022-03-26 16:08] VITALS: BP 137/89; PULSE 74; RESP 16; TEMP 98.2; BMI 30.9
--- NOTE | 2022-03-26 16:20 | P.BASOAP ---
Subjective Progress Note Date: 03/26/22 Principal diagnosis: Morbid obesity Patient returns for reevaluation. He was last seen 2 years ago. His sleeve gastrectomy was 2-1/2 years ago. He has been doing well. Over the last 6 months has had some increased reflux. He stopped his antiacids about 1.5 years ago. Patient's lowest weight was 196 today is 216. 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 Otherwise doing well. No pain. No vomiting. Objective - Vital Signs Vital signs: Vital Signs Temp 98.2 F 03/26/22 16:06 Pulse 74 03/26/22 16:06 Resp 16 03/26/22 16:06 BP 137/89 03/26/22 16:06 Pulse Ox FiO2 Intake & Output 03/25/22 03/26/22 03/26/22 18:59 06:59 18:59 Weight 97.976 kg - Exam Abdomen: Soft, nontender, nondistended Assessment/Plan (1) Morbid obesity Narrative/Plan: Patient doing well at this time. Some increased reflux. Will resume prescription antiacids. Omeprazole daily will be prescribed. Will check annual lab work. Increase daily exercise. Follow-up bariatric clinic 1 year. Plan: Date: 03/26/22 Initial Weight: 115.666 kg Initial BMI: 36.6 Current Weight: 97.976 kg Current BMI: 30.9 Type of Surgery: Vertical Sleeve Gastrectomy Total Volume in Band: Previous Volume: Volume Removed: Volume Added: Band Size:
[2022-03-26 22:35] LABS: HCT 43.8 % (39.6-50.0); HGB 14.5 g/dL (13.0-17.0); MCH 30.3 pg (27.0-32.0); MCHC 33.1 g/dL (32.0-37.0); MCV 91.4 fL (80.0-97.0); Mean Platelet Volume 10.7 fL (9.5-12.2); NRBC Per 100 WBC 0 /100 WBCS (0.0-0.0); Platelet Count 201 X 10*3/uL (140-440); RBC 4.79 X 10*6/uL (4.40-5.60); RDW 12.4 % (11.5-14.5); WBC 5.71 X 10*3/uL (4.50-10.00)
[2022-03-26 23:37] LABS: African American GFR (CKD) 102.7 (60.0-200.0); Albumin 4.6 g/dL (3.8-4.9); Albumin/Globulin Ratio 2.08 (1.60-3.17); Anion Gap 12.6 mmol/L (10.00-18.00); BUN/Creat Ratio 23.75 Ratio (12.00-20.00); Blood Urea Nitrogen 23.2 mg/dL (9.0-27.0); Calcium 9.7 mg/dL (8.7-10.3); Carbon Dioxide 27.3 mmol/L (20.0-27.5); Globulin 2.2 g/dL (1.6-3.3); Non-African American GFR(CKD) 88.6 (60.0-200.0); Potassium 4.4 mmol/L (3.5-5.5); Total Bilirubin 0.5 mg/dL (0.30-1.20); Total Protein 6.8 g/dL (6.2-8.2)
== END | disposition home or self-care (01) ==
LOC: BARWHC3 16:04
PROVIDERS: ATTEND Surgery
DX: E66.01 Morbid (severe) obesity due to excess calories (principal); E55.9 Vitamin D deficiency, unspecified; K90.89 Other intestinal malabsorption
CPT/HCPCS: 80053; 82306; 82607; 82746; 83540; 84425; 85027; 99211